=== PATIENT | female | born 2000 | race Caucasian/White ===

== ENCOUNTER 2018-07-06 19:03 | Emergency (ER) | payer OTHER ==
[~2018-07-06] VITALS: Ht 167.6 cm; Wt 54.7 kg
[2018-07-06 19:09] VITALS: BP 104/74
[2018-07-06] MEDS ORDERED: PROPARACAINE OPHTH 0.5%, 15ML ONE (19:23)
[2018-07-06] MEDS ORDERED: FLUORESCEIN OPHTHALMIC 1 MG STRIP EACHEYE ONE (19:30)
[2018-07-06] MEDS ORDERED: PROPARACAINE OPHTH 0.5%, 15ML EACHEYE ONE (19:30)
== END 2018-07-06 19:48 | disposition home or self-care (01) ==
LOC: EDBD 19:03 → ED 19:05
DX: H10.021 Other mucopurulent conjunctivitis, right eye (principal)
CPT/HCPCS: 99283

== ENCOUNTER 2018-07-07 00:35 | Emergency (ER) | payer OTHER ==
[~2018-07-07] VITALS: Ht 167.6 cm; Wt 54.1 kg
[2018-07-07 00:37] VITALS: BP 107/58
== END 2018-07-07 01:27 | disposition home or self-care (01) ==
LOC: ED 01:03
DX: B30.9 Viral conjunctivitis, unspecified (principal)
CPT/HCPCS: 99283

== ENCOUNTER 2019-02-11 19:22 | Emergency (ER) | payer BC, OTHER ==
[~2019-02-11] VITALS: Ht 167.6 cm; Wt 56.0 kg
[2019-02-11 19:23] VITALS: BP 108/55
[2019-02-11] MEDS ORDERED: ACETAMINOPHEN 500 MG TABLET PO ONE (20:00)
[2019-02-11] MEDS ORDERED: IBUPROFEN 600 MG TABLET PO ONE (20:00)
[2019-02-11] MEDS ORDERED: IBUPROFEN 600 MG TABLET ONE (20:03)
[2019-02-11] MEDS ORDERED: ACETAMINOPHEN 500 MG TABLET ONE ×2 (20:03→20:15)
[2019-02-11 20:21] LABS: BASOPHILS # (AUTO) 0.01 x10^3/uL (0-0.3); BASOPHILS % (AUTO) 0 % (0-1); EOSINOPHILS # (AUTO) 0.03 x10^3/uL (0-0.8); EOSINOPHILS % (AUTO) 0 % (1-7); LYMPHOCYTES # (AUTO) 0.36 x10^3/uL (1-6.1); LYMPHOCYTES % (AUTO) 5 % (22-44); MD NO; MEAN CORPUSCULAR HEMOGLOBIN 26.9 pg (27.0-34.8); MEAN CORPUSCULAR HGB CONC 32.3 g/dL (32.4-35.8); MEAN CORPUSCULAR VOLUME 83.3 fL (80-100); MEAN PLATELET VOLUME 8.6 fL (7.4-10.4); MONOCYTES % (AUTO) 5 % (2-9); NEUTROPHILS # (AUTO) 7.38 x10^3/uL (1.8-8.0); NEUTROPHILS % (AUTO) 90 % (42-75); PLATELET COUNT 343 x10^3/uL (130-400); RED BLOOD COUNT 4.37 x10^6/uL (3.82-5.3)
[2019-02-11 20:31] LABS: ANION GAP 9 mmol/L (5-15); CALCIUM 9.4 mg/dL (8.5-10.1); CHLORIDE 107 mmol/L (98-107); CREATININE 0.96 mg/dL (0.55-1.02)
[2019-02-11 21:24] LABS: CULTURE INDICATED? NO; MICROSCOPIC AUTO
== END 2019-02-11 22:02 | disposition home or self-care (01) ==
LOC: ED 21:14
DX: B34.9 Viral infection, unspecified (principal)
CPT/HCPCS: 36415; 80048; 81001; 82040; 85025; 99283